=== PATIENT | female | born 1980 ===

== ENCOUNTER 2023-07-11 08:09 | Outpatient (CLI) | payer OTHER | END 2023-07-11 08:14 | disposition home or self-care (01) | LOC: RAD 08:09 | PROVIDERS: ATTEND Orthopaedic Surgery | DX: M79.671 Pain in right foot (principal); M25.572 Pain in left ankle and joints of left foot ==

== ENCOUNTER 2023-08-04 09:30 | Outpatient (CLI) | payer OTHER | END 2023-08-04 09:38 | disposition home or self-care (01) | LOC: MRI 09:30 | PROVIDERS: ATTEND Orthopaedic Surgery | DX: M25.572 Pain in left ankle and joints of left foot (principal); M76.812 Anterior tibial syndrome, left leg | CPT/HCPCS: 73721 ==

== ENCOUNTER → 2023-08-05 | Outpatient (CLI) | payer OTHER | END | disposition home or self-care (01) | LOC: MRI 07:49 | PROVIDERS: ATTEND Orthopaedic Surgery | DX: M76.812 Anterior tibial syndrome, left leg (principal); M25.572 Pain in left ankle and joints of left foot | CPT/HCPCS: 73721 ==